=== PATIENT | female | born 1985 | race African-American/Black ===

== ENCOUNTER 2018-04-15 08:41 | Observation (INO) ==
[2018-04-15] MEDS ORDERED: SODIUM CHLORIDE 0.9% 1,000 ML IV STA (09:08)
[2018-04-15] MEDS ORDERED: ONDANSETRON 4 MG/2 ML VIAL IV STA (09:08)
[2018-04-15 09:25] LABS: Basophils % 0.2 % (0.0-0.8); Hematocrit 38.3 VOL% (35.7-47.0); Hemoglobin 12.7 GM/DL (12.0-16.0); Immature Granulocytes % 0.2 %; Immature Granulocytes Absolute 0.01 #; Lymphocytes # 1.1 10*3/uL (1.4-4.0); Lymphocytes % 21.4 % (21.3-54.2); Mean Corpuscular HGB Conc 33.2 GM/DL (32-36); Mean Corpuscular Hemoglobin 27 PG (27-34); Mean Corpuscular Volume 82.5 FL (87-102); Mean Platelet Volume 9.8 FL (9.6-12.0); Monocytes # 0.4 10*3/uL (0.11-0.8); Neutrophils # 3.6 10*3/uL (1.4-7.4); Neutrophils % 70.2 % (38.7-73.9); Platelet Count 252 T/CUMM (130-400); Red Blood Count 4.64 MC/CUMM (3.8-5.5); Red Cell Distribution Width 14.6 % (9.3-17.3); White Blood Count 5.2 T/CUMM (4-12)
[2018-04-15 09:36] LABS: Apearance,Urine Slightly Hazy (Clear); Bilirubin,Urine Negative (Negative); Blood, Urine Negative (Negative); Glucose,Urine (UA) Negative (Negative); Ketones,Urine 80 mg/dL (Negative); Mucus,Urine Many /LPF (Occasional); Nitrite,Urine Negative (Negative); Protein,Urine 30 MG/DL; Squamous Epithelial Cell,Urine Occasional /HPF (0-10); Urine Color Yellow (Yellow); Urine Specific Gravity 1.032 (1.001-1.035); WBC,Urine 4 /HPF (0-6)
[2018-04-15 09:46] LABS: Albumin 4.4 G/DL (3.4-5.0); Bilirubin,Total 0.8 MG/DL (0.2-1.0); Calcium 10.1 MG/DL (8.5-10.1); Osmolality,Calculated 265.2 MOS/KG (273-304); Potassium 3.4 MMOL/L (3.5-5.1); Total Protein 8.5 G/DL (6.4-8.3)
[2018-04-15] MEDS ORDERED: IBUPROFEN 800 MG TABLET PO PRN (10:45)
[2018-04-15] MEDS ORDERED: ACETAMINOPHEN 325 MG TABLET PO PRN (10:45)
[2018-04-15] MEDS ORDERED: BISACODYL 10 MG SUPP RECTAL PRN (10:45)
[2018-04-15] MEDS ORDERED: PROMETHAZINE 12.5 MG SUPP RECTAL PRN (10:45)
[2018-04-15] MEDS ORDERED: MAGNESIUM HYDROXIDE SUSP 30 ML UDCUP PO PRN (10:45)
[2018-04-15] MEDS: PROMETHAZINE 25 MG/1 ML VIAL IM PRN (14:41)
[2018-04-15] MEDS: LACTATED RINGERS 1,000 ML IV SCH (20:03)
[2018-04-15] MEDS ORDERED: ALUM/MAG/SIMETH/LIDO VISC 1:1 30 ML BOTTLE PO ONE (20:33)
[2018-04-15] MEDS ORDERED: PANTOPRAZOLE 40 MG TABLET PO SCH (21:00)
[2018-04-15] MEDS: DOCUSATE SODIUM 100 MG CAPSULE PO SCH (21:30)
[2018-04-16] MEDS: PROMETHAZINE 25 MG/1 ML VIAL IM PRN (00:21)
[2018-04-16] MEDS: ONDANSETRON 4 MG/2 ML VIAL IV PRN ×5 (02:11→21:00)
[2018-04-16] MEDS: LACTATED RINGERS 1,000 ML IV SCH ×3 (04:44→22:59)
[2018-04-16] MEDS ORDERED: METOCLOPRAMIDE 10 MG/2 ML VIAL IV PRN (07:52)
[2018-04-16] MEDS: PANTOPRAZOLE 40 MG VIAL IV SCH ×2 (09:14→20:57)
[2018-04-16] MEDS: DOCUSATE SODIUM 100 MG CAPSULE PO SCH ×2 (09:17→22:59)
[2018-04-16] MEDS: METOCLOPRAMIDE 10 MG/2 ML VIAL IV SCH (16:12)
[2018-04-17] MEDS: METOCLOPRAMIDE 10 MG/2 ML VIAL IV SCH ×2 (00:45→10:12)
[2018-04-17] MEDS: LACTATED RINGERS 1,000 ML IV SCH (04:02)
[2018-04-17] MEDS: ONDANSETRON 4 MG/2 ML VIAL IV PRN (06:58)
[2018-04-17] MEDS: DOCUSATE SODIUM 100 MG CAPSULE PO SCH (10:11)
[2018-04-17] MEDS: PANTOPRAZOLE 40 MG VIAL IV SCH (10:12)
[2018-04-17] MEDS ORDERED: ONDANSETRON 4 MG TABLET PO PRN (10:50)
[2018-04-17 11:48] VITALS: BP 120/73
[2018-04-17] MEDS ORDERED: METOCLOPRAMIDE 10 MG TABLET PO SCH (13:00)
== END 2018-04-17 15:30 | disposition home or self-care (01) ==
LOC: N.EDINP 08:41 → N.ED 08:41 → N.OB 11:30
PROVIDERS: ADMIT Obstetrics & Gynecology; ATTEND Obstetrics & Gynecology

== ENCOUNTER 2018-11-23 04:18 | Inpatient (IN) ==
[2018-11-23] MEDS ORDERED: BUTORPHANOL 2 MG/ML VIAL IV PRN (04:37)
[2018-11-23] MEDS ORDERED: ONDANSETRON 4 MG/2 ML VIAL IV PRN ×2 (04:37→14:12)
[2018-11-23] MEDS ORDERED: FAMOTIDINE 20 MG/2 ML VIAL IV PRN (04:37)
[2018-11-23] MEDS ORDERED: MEPERIDINE 50 MG/1 ML VIAL IV PRN (04:37)
[2018-11-23] MEDS ORDERED: CITRIC ACID/SODIUM CITRATE 30 ML UDCUP PO PRN (04:51)
[2018-11-23] MEDS ORDERED: ePHEDrine 50 MG/ML AMP IV PRN (04:51)
[2018-11-23] MEDS ORDERED: OXYTOCIN/LR 20 UNIT/1,000 ML BAG IV SCH (05:00)
[2018-11-23] MEDS: LACTATED RINGERS 1,000 ML IV SCH ×2 (05:00→11:00)
[2018-11-23 05:20] LABS: Basophils % 0.1 % (0.0-0.8); Eosinophils # 0.1 10*3/uL (0.0-0.87); Eosinophils % 0.8 % (0.00-10.9); Hematocrit 37.5 VOL% (35.7-47.0); Hemoglobin 11.8 GM/DL (12.0-16.0); Immature Granulocytes % 0.6 %; Immature Granulocytes Absolute 0.05 #; Lymphocytes # 1.6 10*3/uL (1.4-4.0); Lymphocytes % 21.1 % (21.3-54.2); Mean Corpuscular HGB Conc 31.5 GM/DL (32-36); Mean Corpuscular Hemoglobin 29 PG (27-34); Mean Platelet Volume 10.3 FL (9.6-12.0); Monocytes # 0.7 10*3/uL (0.11-0.8); Monocytes % 8.4 % (1.7-12.7); Neutrophils # 5.3 10*3/uL (1.4-7.4); Platelet Count 228 T/CUMM (130-400); Red Blood Count 4.12 MC/CUMM (3.8-5.5); Red Cell Distribution Width 16.7 % (9.3-17.3); White Blood Count 7.7 T/CUMM (4-12)
[2018-11-23 05:38] LABS: Alanine Aminotransferase 15 U/L (13-56); Albumin 2.9 G/DL (3.4-5.0); Alkaline Phosphatase 200 U/L (45-117); Aspartate Amino Transferase 12 U/L (0-37); Bilirubin,Total < 0.39 MG/DL (0.2-1.0); Blood Urea Nitrogen 11 MG/DL (7-18); Calcium 8.6 MG/DL (8.5-10.1); Glucose 83 MG/DL (74-106); Osmolality,Calculated 274.5 MOS/KG (273-304); Potassium 3.7 MMOL/L (3.5-5.1); Sodium 139 MMOL/L (136-145); Total Protein 6.8 G/DL (6.4-8.3)
[2018-11-23] MEDS ORDERED: hydrOXYzine HCL 25 MG/1 ML VIAL IM PRN (10:47)
[2018-11-23] MEDS ORDERED: diphenhydrAMINE 50 MG/1 ML VIAL IV PRN ×2 (10:47)
[2018-11-23] MEDS ORDERED: NALOXONE 0.4 MG/ML VIAL IV PRN (10:47)
[2018-11-23] MEDS ORDERED: PROMETHAZINE 25 MG/1 ML VIAL IM ONE (10:47)
[2018-11-23] MEDS ORDERED: fentaNYL 2 MCG/ROPIV 0.2% EPID 100 ML EPIDURAL SCH (11:00)
[2018-11-23 12:31] LABS: Apearance,Urine CLEAR (Clear); Bilirubin,Urine Negative (Negative); Blood, Urine Negative (Negative); Glucose,Urine (UA) Negative (Negative); Ketones,Urine Negative (Negative); Mucus,Urine Occasional /LPF (Occasional); Nitrite,Urine Negative (Negative); Protein,Urine Negative; RBC,Urine <1 /HPF (0-4); Urine Color Yellow (Yellow); Urine Specific Gravity 1.018 (1.001-1.035); Urine Urobilinogen < 2.0 EU/DL (0.2-1.0); WBC,Urine <1 /HPF (0-6)
[2018-11-23] MEDS ORDERED: OXYTOCIN/LR 20 UNIT/1,000 ML BAG IV ONE ×2 (13:19→14:12)
[2018-11-23] MEDS ORDERED: TRANEXAMIC ACID 1,000 MG/10 ML VIAL ONE (13:19)
[2018-11-23] MEDS ORDERED: miSOPROStol 200 MCG TABLET ONE (13:19)
[2018-11-23] MEDS ORDERED: CARBOPROST TROMETHAMINE 250 MCG/ML AMP IM ONE (13:20)
[2018-11-23] MEDS ORDERED: METHYLERGONOVINE 0.2 MG/1 ML AMP ONE (13:20)
[2018-11-23] MEDS ORDERED: LIDOCAINE 1% 50 ML VIAL ONE (13:21)
[2018-11-23] MEDS ORDERED: HYDROCORTISONE 2.5% RECTAL CREAM 30 GM TUBE TOP PRN (14:12)
[2018-11-23] MEDS ORDERED: LANOLIN 50% CREAM 0.3 OZ TUBE TOP PRN (14:12)
[2018-11-23] MEDS ORDERED: BISACODYL 10 MG SUPP RECTAL PRN (14:12)
[2018-11-23] MEDS ORDERED: BENZOCAINE 20%/MENTHOL 0.5% SPRAY 56 GM CAN TOP PRN (14:12)
[2018-11-23] MEDS ORDERED: oxyCODONE/ACETAMINOPHEN 5-325 MG TABLET PO PRN ×2 (14:12)
[2018-11-23] MEDS ORDERED: WITCH HAZEL PADS 100/JAR TOP PRN (14:12)
[2018-11-23] MEDS ORDERED: RHO(D) IMMUNE GLOBULIN 300 MCG SYRINGE IM ONE (14:12)
[2018-11-23] MEDS ORDERED: DIPH/TET/ACEL PERT BOOSTER VACCINE 0.5 ML VIAL IM ONE (14:12)
[2018-11-23] MEDS ORDERED: MEASLES/MUMPS/RUBELLA VACCINE 0.5 ML VIAL SUBCUT ONE (14:12)
[2018-11-23] MEDS ORDERED: ACETAMINOPHEN 325 MG TABLET PO PRN (14:12)
[2018-11-23] MEDS: DOCUSATE SODIUM 100 MG CAPSULE PO SCH (21:06)
[2018-11-24] MEDS: IBUPROFEN 800 MG TABLET PO PRN ×3 (00:09→17:18)
[2018-11-24 06:56] LABS: Basophils % 0.2 % (0.0-0.8); Eosinophils # 0.1 10*3/uL (0.0-0.87); Eosinophils % 0.9 % (0.00-10.9); Hematocrit 33.9 VOL% (35.7-47.0); Hemoglobin 10.6 GM/DL (12.0-16.0); Immature Granulocytes % 0.4 %; Immature Granulocytes Absolute 0.05 #; Lymphocytes # 1.8 10*3/uL (1.4-4.0); Lymphocytes % 15.8 % (21.3-54.2); Mean Corpuscular HGB Conc 31.3 GM/DL (32-36); Mean Corpuscular Hemoglobin 28 PG (27-34); Mean Corpuscular Volume 90.9 FL (87-102); Mean Platelet Volume 11.1 FL (9.6-12.0); Monocytes # 0.9 10*3/uL (0.11-0.8); Monocytes % 8.1 % (1.7-12.7); Neutrophils # 8.7 10*3/uL (1.4-7.4); Neutrophils % 74.6 % (38.7-73.9); Platelet Count 197 T/CUMM (130-400); Red Blood Count 3.73 MC/CUMM (3.8-5.5); Red Cell Distribution Width 16.6 % (9.3-17.3); White Blood Count 11.7 T/CUMM (4-12)
[2018-11-24] MEDS: DOCUSATE SODIUM 100 MG CAPSULE PO SCH ×2 (09:29→22:04)
[2018-11-25 07:59] VITALS: BP 125/76
[2018-11-25] MEDS: DOCUSATE SODIUM 100 MG CAPSULE PO SCH (09:40)
== END 2018-11-25 13:20 | disposition home or self-care (01) | DRG 768 ==
LOC: N.LDOUT 04:18 → N.LD 04:20 → N.OB 17:02
PROVIDERS: ADMIT Obstetrics & Gynecology; ATTEND Obstetrics & Gynecology